=== PATIENT | female | born 1995 | race Two or more races ===

== ENCOUNTER 2025-03-29 10:39 | Inpatient (IN) | payer MEDICAID, SELFPAY ==
[2025-03-29] VITALS (62 sets, daily range): BP systolic 107–180; BP diastolic 57–107; PULSE 70–108; RESP 13–98; TEMP 36.3–37.1; O2SAT 94–100; BMI 42.5
[2025-03-29 10:28] LABS: Basophils % (Auto) 0 % (0-2.5); Eosinophils # (Auto) 0.1 Thou/mm3 (0.0-0.5); Eosinophils % (Auto) 1 % (0-10); Hematocrit 38.2 % (36.0-46.0); Hemoglobin 13.1 g/dL (12.0-16.0); Immature Granulocytes % (Auto) 1 % (0-0); Immature Granulocytes Auto 0.07 Thou/mm3 (0.00-0.00); Lymphocytes # (Auto) 2.1 Thou/mm3 (1.0-4.8); Lymphocytes % (Auto) 20 % (10-50); Mean Corpuscular HGB Conc 34.3 g/dl (31.0-37.0); Mean Corpuscular Hemoglobin 32.6 pg (25.0-35.0); Mean Corpuscular Volume 95 fL (80-100); Monocytes # (Auto) 0.7 Thou/mm3 (0.0-0.8); Monocytes % (Auto) 7 % (0-12); Neutrophils # (Auto) 7.5 Thou/mm3 (1.8-7.7); Neutrophils % (Auto) 72 % (37-80); Nucleated Red Blood Cell % 0 /100 WBC (0); Platelet Count 264 Thou/mm3 (140-440); RDW Standard Deviation 46.5 fL (36.4-46.3); Red Blood Count 4.02 Miln/mm3 (4.00-5.20); White Blood Count 10.4 Thou/mm3 (3.6-11.0)
[2025-03-29 10:31] LABS: Collection Type, Urine Clean Catch
[2025-03-29] MEDS: RINGERS LACTATED 1000 ML 1,000 ML 100 ML IV (10:50)
[2025-03-29 10:53] LABS: Alanine Aminotransferase 14 U/L (10-49); Albumin, Serum 3.8 gm/dL (3.5-5.0); Albumin/Globulin Ratio 1.4 (1.2-2.2); Alkaline Phosphatase 158 U/L (46-116); Anion Gap 11 (7-16); Aspartate Amino Transferase 19 U/L (0-34); BUN/Creatinine Ratio 12 Ratio (12-20); Bilirubin,Total 0.3 mg/dL (0.3-1.2); Blood Urea Nitrogen 7 mg/dL (9-23); Calcium (Corrected) 9.2 mg/dL (8.5-10.1); Carbon Dioxide 22.8 mMol/L (20.0-31.0); Chloride 103 mMol/L (98-107); Creatinine (Component) 0.6 mg/dL (0.6-1.3); Estimated Creatinine Clearance 166.9 mL/min (>60); Fibrinogen 535 mg/dL (175-375); Globulin 2.8 gm/dL (2.3-3.5); Glucose 84 mg/dL (74-106); INR 0.9 (0.9-1.3); LDH (Lactate Dehydrogenase) 176 U/L (120-246); Osmolality,Calculated 270 (275-295); Partial Thromboplastin Time 24.9 Seconds (22.0-36.0); Potassium 4.2 mMol/L (3.4-5.1); Prothrombin Time 9.8 Seconds (9.0-12.2); Sodium 137 mMol/L (136-145); Total Protein 6.6 gm/dL (5.7-8.2); Uric Acid 6.2 mg/dL (3.1-7.8); eGFR > 60 See Note
--- NOTE | 2025-03-29 11:05 | ESHP_ITS ---
Documentation for date of: 03/29/25 OB Labor/Induct. HPI History of Present Illness : 2 Para: 1 Term pregnancies: 1 pregnancies: 0 Living children: 1 History of Abortions: Spontaneous and Elective: 0 History of Vaginal deliveries: 0 History of sections: Yes (x1) History of : No Date of last menstrual period: 07/02/24 JOSEY: 04/08/25 Gestational age based on last menstrual period: 38 History of present illness: ?@38w4d, per LMP ( per 20 wk scan), admitted for a repeat Low transverse Csection . Patient was seen earlier in the clinic today and had elevated BP . Until this point in patient had normal BP reading . Denied any headache, blurred vision , chest pain or SOB. H/O syphilis , s/p penicillin x3. , syphilis titers 1: 4 decreased after trini treatment to 1:2 in third trimester. History of Present Dating criteria: LMP confirmed by 2nd trimester US Adequate Care: Yes Abnormal ultrasound findings: anatomy post placenta Normal Labs Labs: Positive: RPR and Rubella Titre, Negative: Hepatitis B, HIV, Chlamydia, Gonorrhea and Herpes Type 1 and Unknown: Herpes Type 2 Narrative: NIPT low risk Past Medical History Surgical History SURGICAL: Positive Section (x1) Meds Home Medications and Allergies Home Medications ?Medication ?Instructions ?Recorded ?Confirmed ?Type No Known Home Medications 04/04/2103/17 History Allergies Allergy/AdvReac Type Severity Reaction Status Date / Time No Known Allergies Allergy Verified 04/04/21 16:51 OB Exam Physical Exam Vital signs: Temp Pulse Resp BP Pulse Ox O2 Del Method 97.5 F 76 18 137/89 H 96 Room Air 03/29/25 09:49 03/29/25 10:52 03/29/25 09:49 03/29/25 10:52 03/29/25 11:01 03/29/25 09:49 Constitutional Constitutional: no acute distress Routine HEENT Exam Head: Present normocephalic and atraumatic Eye: Present EOMI and PERRL ENT: Present mucous membranes moist Routine Neck Exam Neck: Present supple and trachea midline Routine Cardiovascular Exam Cardiovascular: Present RRR Routine Abdominal Exam Abdominal: Present soft and normoactive bowel sounds Detailed Labor and Delivery Exam Dilation (cm): closed Comments: FHT cat 1 Routine Extremities Exam Extremities: Present full ROM Routine Skin Exam Skin: Present intact, dry and warm Routine Neurological Exam Neurological: Present alert, oriented X3 and CN II-XII intact Routine Psychiatric Exam Psychiatric: Present normal affect and normal thought process OB Results Labs 03/29/25 10:17 03/29/25 10:17 Labs: Short CBC 03/29/25 Range/Units 10:17 WBC 10.4 (3.6-11.0) Thou/mm3 Hgb 13.1 (12.0-16.0) g/dL Hct 38.2 (36.0-46.0) % Plt Count 264 (140-440) Thou/mm3 BMP 03/29/25 10:17 Sodium 137 Potassium 4.2 Chloride 103 Carbon Dioxide 22.8 BUN 7 L Creatinine 0.6 Glucose 84 Calcium 9.0 Liver Function 03/29/25 Range/Units 10:17 Total Bilirubin 0.3 (0.3-1.2) mg/dL AST 19 (0-34) U/L ALT 14 (10-49) U/L Alkaline Phosphatase 158 H (46-116) U/L Albumin 3.8 (3.5-5.0) gm/dL Impressions Impression: 29 y/o @38w4d , per LMP and 2nd trimester scan, admitted for Repeat Low transverse Csection for preclampsia with severe features ( BP) Labs wnl , asymptomatic hb 13 Prev Csection x1 OB Assessment & Plan Additional Plan Additional Plan Comment: repeat Low transverse Csection magnesium to be started for seizure proplhylaxis Labtalol is held as by the time of dispensing [facility] BP was in 130 systolic , anticipating drop of BP from neuraxial anasthesia , decision to continue reading BP without any meds
[2025-03-29] MEDS: Magnesium Sulfate 4 GM Ivpb 4 GM/50 ML BAG IV (11:06)
[2025-03-29 11:20] LABS: Magnesium 1.9 mg/dL (1.6-2.6)
[2025-03-29 11:21] LABS: Bacteria,Urine Rare; Bilirubin,Urine Negative (Negative); Blood,Urine Negative (Negative); Clarity,Urine Clear (Clear/Hazy); Color,Urine Lt-Yellow (Lt Yel-Yel); Glucose, Urine Negative (Negative); Ketones,Urine Negative (Negative); Leukocyte Esterase,Urine Negative (Negative); Nitrite,Urine Negative (Negative); Protein,Urine Negative (Neg - Trace); RBC,Urine 4 /hpf (0-3); Specific Gravity,Urine 1.019 (1.001-1.035); Squamous Epithelial Cell,Urine 3 /hpf (0-5); Urobilinogen,Urine Negative mg/dL (0.0-1.0); WBC,Urine 4 /hpf (0-5)
[2025-03-29] MEDS: MAGNESIUM SULF 20 GM IVPB 20 GM/500 ML BAG IV ×2 (11:39→22:17)
[2025-03-29] MEDS: FAMOTIDINE INJ 10 MG/ML VIAL 2 ML 20 MG IV (11:56)
[2025-03-29] MEDS: METOCLOPRAMIDE INJ 5 MG/ML VIAL 2 ML 10 MG IVP (11:56)
[2025-03-29] MEDS: ceFAZolin/D5W 2 GM IV 2 GM/100 ML BAG IV (11:56)
[2025-03-29 12:08] LABS: Syphilis Reactive (Nonreactive)
[2025-03-29 12:09] LABS: MHATP/TP-PA* See Sep Rpt
[2025-03-29 12:24] LABS: Creatinine,Random Urine 93 mg/dL (30-125); Protein Total, Random Urine 13 mg/dL (1-14)
--- NOTE | 2025-03-29 12:50 | PC.NURSE ---
Verbal order received from Dr. Osorio to continue Mag for 24 hrs postop, mag draws Q6HRS, and RN to order procaridia 30XL QDAY if x1 bp reading over 140 systolic, and notify .
[2025-03-29] MEDS: OXYTOCIN in NS 20 units 20 UNIT/1,000 ML BAG 125 UNIT IV (13:30)
[2025-03-29 14:15] LABS: Magnesium 2.8 mg/dL (1.6-2.6)
[2025-03-29 16:46] LABS: Basophils % (Auto) 0 % (0-2.5); Eosinophils % (Auto) 0 % (0-10); Hematocrit 36.4 % (36.0-46.0); Hemoglobin 12.9 g/dL (12.0-16.0); Immature Granulocytes % (Auto) 1 % (0-0); Lymphocytes # (Auto) 1.8 Thou/mm3 (1.0-4.8); Lymphocytes % (Auto) 12 % (10-50); Mean Corpuscular HGB Conc 35.4 g/dl (31.0-37.0); Mean Corpuscular Hemoglobin 32.7 pg (25.0-35.0); Mean Corpuscular Volume 92 fL (80-100); Monocytes # (Auto) 0.8 Thou/mm3 (0.0-0.8); Monocytes % (Auto) 6 % (0-12); Neutrophils # (Auto) 11.6 Thou/mm3 (1.8-7.7); Neutrophils % (Auto) 81 % (37-80); Nucleated Red Blood Cell % 0 /100 WBC (0); Platelet Count 243 Thou/mm3 (140-440); RDW Standard Deviation 45.4 fL (36.4-46.3); Red Blood Count 3.95 Miln/mm3 (4.00-5.20); White Blood Count 14.3 Thou/mm3 (3.6-11.0)
--- NOTE | 2025-03-29 21:44 | ESOP_ITS ---
Operative Note - [employer]IGIOUS [employer] S[employer]TERER Procedure Date of procedure: 03/29/25 Procedure Performed: Repeat low-transverse Indication: Previous x 1 Preeclampsia with severe features Pre-Op diagnosis: Same Post-Op diagnosis: Same Anesthesia type: Spinal Procedure description: Informed consent was obtained and the patient was taken to the operating room.? Identity was confirmed by double identifiers and she was placed on the operating table.The abdomen and perineum were prepped in the usual sterile fashion and a Suarez catheter was placed to continuous drainage.? Sterile drapes were applied.??A Pfannenstiel skin incision was made with a scalpel and carried to the subcutaneous fat up to the rectus fascia.? The rectus fascia was incised on either side of the midline and the incisions were extended bilaterally.? The fascia was gently dissected off the ventral surface of the rectus muscle both superiorly and inferiorly. Carefully a peritioneal window created after making sure there are no adhesions, hysterotomy incision made and extended bluntly with finger. Rupture of membranes revealed clear fluid. The baby was found in cephalic presentation and was delivered via vertex. the umbilical cord , was doubly clamped, divided and the was handed over to the waiting team. Cord blood collected the placenta delivered by controlled cord traction . The interior of the uterus was now thorougly cleaned of all blood and debris and membranes.?The? hysterotomy was closed using 0 vicryl suture in double layers. Once the repair was completed the hysterotomy was inspected, was noted to be adequately hemostatic. Then the rectus fascia was repaired using Vicryl 0 in a running fashion.? The subcutaneous layer was now, approximated with 3-0 vicryl in double layers.? All bleeding points were cauterized using the Bovie.?The skin was closed using 4-0 Monocryl in a subcuticular fashion.? The skin was cleaned and a sterile dressing was applied. The patient was now undraped, the abdomen and back were thoroughly cleaned and she was now transferred to the recovery room in a stable Estimated blood loss (ml): 400 Surgical staff Operation Date: 03/29/25 12:15 Case Staff [employer] CLERK/SPECIALIST: Mark Anthony Baez RN First Assistant: Alexander Pendleton Diagnosis Problem List Completed Was Problem List Reviewed/Reconciled?: Yes
--- NOTE | 2025-03-29 21:44 | PD.LDDELS ---
Data (Garcia) Data Hx Section: Yes : 2 Term: 1 : 0 Livin Abortions: Spontaneous & Theraputic: 0 Delivery Data (Garcia) Labor Data Induction/Augmentation Agent: None ROM date: 03/29/25 ROM time: 12:36 Amniotic membrane rupture type: Artificial Amniotic fluid description: Clear Delivery Data delivery date: 03/29/25 delivery time: 12:36 Gestational age (weeks): 38 Gestational age (days): 4 Placenta delivery date: 03/29/25 Placenta delivery time: 12:36 Delivered by: Manas Osorio Delivery nurse: Jaky Zaragoza RN [place] nurse: Chan Arrigaa RN Hearing Impaired Itinerant Teacher at delivery: Yes (Dr. Ward) Support person(s) at delivery: Mother of pt Delivery Method Delivery method: Low Transverse Presentation: Vertex Anesthesia Type Anesthesia Type: Spinal Placenta Placenta delivery description: Manual Removal Cord blood sent to lab: Yes cord blood collection: Cord Blood Type Episiotomy Episiotomy description: None EBL Estimated blood loss (ml): 400 Umbilical Cord cord description: 3 Vessels Data (Garcia) Data 's gender: Male weight (gms): 3390 g Weight (pounds): 7 lbs and 7.6 ozs 1 minute: 8 5 minutes: 9
[2025-03-29] MEDS: ACETAMINOPHEN 325 MG TABLET 650 MG PO (23:15)
[2025-03-29 23:55] LABS: Magnesium 4.6 mg/dL (1.6-2.6)
[2025-03-30] VITALS (17 sets, daily range): BP systolic 109–143; BP diastolic 66–86; PULSE 88–108; RESP 13–20; TEMP 36.3–36.9; O2SAT 96–98
[2025-03-30] MEDS: OXYTOCIN in NS 20 units 20 UNIT/1,000 ML BAG 125 UNIT IV (03:21)
[2025-03-30] MEDS: KETOROLAC INJ 30 MG/ML VIAL IVP ×2 (04:43→12:14)
[2025-03-30 06:16] LABS: Magnesium 4.8 mg/dL (1.6-2.6)
[2025-03-30] MEDS: MAGNESIUM SULF 20 GM IVPB 20 GM/500 ML BAG IV (09:46)
[2025-03-30 11:32] LABS: Magnesium 4.9 mg/dL (1.6-2.6)
--- NOTE | 2025-03-30 13:45 | PC.NURSE ---
1334: RN TOOK RODRIGUEZ OUT AND GOT PATIENT UP OUT OF BED. PATIENT AMBULATED TO THE ROOM TO VISIT INFANT.
--- NOTE | 2025-03-30 14:27 | PC.NURSE ---
1425 TO THE NICU FOR FEEDING
[2025-03-31 00:29] VITALS: BP 111/72; PULSE 93; RESP 17; TEMP 36.7; O2SAT 95
[2025-03-31 04:24] VITALS: BP 114/73; PULSE 84; RESP 14; TEMP 36.7; O2SAT 95
[2025-03-31] MEDS: IBUPROFEN TAB 400 MG TABLET 800 MG PO (04:39)
[2025-03-31 08:00] VITALS: BP 133/81; PULSE 95; RESP 17; TEMP 36.7; O2SAT 95
--- NOTE | 2025-03-31 08:56 | PD.LDPPPRG ---
Subjective Subjective Interval history: Covering for Dr. Osorio beginning 03/31 at 0700. I was not covering yesterday please see the progress note from Dr. Osorio for yesterday. Patient denies any primary complaint Exam Vital Signs Temp Pulse Resp BP Pulse Ox O2 Del Method 98.0 F 84 14 114/73 95 Room Air 03/31/25 04:24 03/31/25 04:24 03/31/25 04:24 03/31/25 04:24 03/31/25 04:24 03/31/25 04:24 Routine Respiratory Exam Comments: Regular rate and rhythm Routine Cardiovascular Exam Comments: Clear to auscultation bilaterally Routine Abdominal Exam Comments: Incision clear and intact Routine Extremities Exam Comments: Extremities nontender Objective Labs 03/29/25 16:30 03/29/25 10:17 Labs: Laboratory Results - last 24 hr 03/30/25 10:54 Magnesium 4.9 H Assessment & Plan Assessment Comment Assessment comment: Postop day #2 status post delivery Discharge home Discharge instructions given Follow-up in the office in 1 week Time Spent With Patient Time: Total time spent is greater than 50% in coordination of care (as documented) at patient's floor/unit and/or counseling patient:
--- NOTE | 2025-03-31 09:09 | PD.LDDS ---
DS: Providers Provider Date of admission: 03/29/25 10:39 Primary care physician: Physician No Primary/Family Admitting Provider: Manas Osorio MD Attending Provider on Admission: Дмитрий Ayon MD Consults: 03/29/25 12:11 Referral Routine Comment: Attending Provider on DC: Дмитрий Ayon MD Discharging Provider: Дмитрий Ayon MD DS: Diagnosis Problem List Completed Was Problem List Reviewed/Reconciled?: Yes Summary/Hosp Course Brief History: ?@38w4d, per LMP ( per 20 wk scan), admitted for a repeat Low transverse Csection . Patient was seen earlier in the clinic today and had elevated BP . Until this point in patient had normal BP reading . Denied any headache, blurred vision , chest pain or SOB. H/O syphilis , s/p penicillin x3. , syphilis titers 1: 4 decreased after trini treatment to 1:2 in third trimester. Peripartum Data Delivery Method: Low Transverse Episiotomy Description: None Procedures: Procedures Operation Date: 03/29/25 12:15 Actual Procedure Side Surgeon p in OB Manas Osorio MD Time Spent with Patient Time attestation: Total time spent providing and/or coordinating discharge services: Exam Vital Signs Temp Pulse Resp BP Pulse Ox O2 Del Method 98.0 F 84 14 114/73 95 Room Air 03/31/25 04:24 03/31/25 04:24 03/31/25 04:24 03/31/25 04:24 03/31/25 04:24 03/31/25 04:24 Discharge Plan Plan Patient Disposition: HOME (Self Care) Patient condition on transfer: Stable Prescriptions/Referrals Prescriptions/Med Rec: No Action No Known Home Medications Referrals: No Primary/Family,Physician [Primary Care Provider] - Patient/Caregiver Discharge Instructions Discharge Activity: activity as tolerated Other Discharge Activity Instructions:: Follow up office in 1 week Education Materials: Breast Care After , After a , C Section Dc Print Language: Malian Stand Alone Forms: [facility] Award Info., Patient Portal Info Letter Discharge Order Discharge Orders: Discharge (Routine); Ordered 03/31/25 Ordered By: Дмитрий Ayon Planned Discharge Date 03/31/25
== END 2025-03-31 09:44 | disposition home or self-care (01) | DRG 540 ==
LOC: S4S1 11:55 → S4SX 11:56 → S4NX 12:39 → S4SX 03-30 06:08
PROVIDERS: Admitting Provider Student in an Organized Health Care Education/Training Program; Referring Provider Student in an Organized Health Care Education/Training Program; Visit Provider Specialist
PROC: 10D00Z1 Extraction of Products of Conception, Low, Open Approach (ICD-10-PCS; CPT 59514; principal; 2025-03-29 12:00)
DX: O34.211 Maternal care for low transverse scar from previous cesarean delivery (principal); Z37.0 Single live birth; Z3A.38 38 weeks gestation of pregnancy; O14.14 Severe pre-eclampsia complicating childbirth
CPT/HCPCS: 36415; 59025; 80053; 81001; 82570; 83615; 83735; 84156; 84550; 85025; 85384; 85610; 85730; 86780; 86850; 86900; 86901; A4649; J0689; J1885; J2590; J2765; J3475; J3490; J7120; A9270